=== PATIENT | male | born 1990 | race Caucasian/White ===

== ENCOUNTER 2019-04-03 22:48 | Emergency (ER) | payer SELFPAY ==
[~2019-04-03] VITALS: Ht 170.2 cm; Wt 71.2 kg
[2019-04-03 22:58] VITALS: BP 130/73; Ht 170.2 cm; Wt 71.2 kg
== END 2019-04-03 23:35 | disposition home or self-care (01) ==
LOC: ED 22:48
DX: S63.601A Unspecified sprain of right thumb, initial encounter (principal); Z88.8 Allergy status to other drugs, medicaments and biological substances; X50.0XXA Overexertion from strenuous movement or load, initial encounter; Y93.89 Activity, other specified; Y92.89 Other specified places as the place of occurrence of the external cause; Y99.8 Other external cause status